=== PATIENT | male | born 1985 | race Two or more races ===

== ENCOUNTER 2023-12-13 11:22 | Emergency (ER) | payer OTHER ==
[~2023-12-13] VITALS: Ht 175.3 cm; Wt 100.0 kg
[2023-12-13 11:47] VITALS: O2SAT 99
[2023-12-13] MEDS: diphenhdrAMINE HCL 50 MG/1 ML VL IV ONE (12:31)
[2023-12-13] MEDS: SODIUM CHLORIDE 0.9% 1,000 ML IV ONE (12:52)
[2023-12-13] MEDS: LORazepam 2MG/ML-1ML VIAL IM ONE (13:51)
[2023-12-13] MEDS: HALOPERIDOL LACTATE 5 MG/ML INJ VIAL IM ONE (13:51)
[2023-12-13 16:00] VITALS: BP 124/75; PULSE 62; RESP 16; O2SAT 95
[2023-12-13 17:54] LABS: Amphetamine Screen, Urine Neg (NEGATIVE); Barbiturate Scree,Urine Neg (NEGATIVE); Benzodiazephine Screen, Urine Neg (NEGATIVE); Cocaine Screen, Urine Neg (NEGATIVE); Opiate Scree,Urine Neg (NEGATIVE)
[2023-12-13 17:55] LABS: Cannabinoid Screen, Urine Pos (NEGATIVE); Phencyclidine Screen, Urine Neg (NEGATIVE)
[2023-12-13] MEDS ORDERED: OLANZapine 5 MG TAB PO SCH (22:00)
[2023-12-14] MEDS ORDERED: OLANZapine 5 MG TAB PO SCH (10:00)
== END 2023-12-13 19:57 | disposition home or self-care (01) ==
LOC: ER 11:22 → EDBD 11:22 → ER 19:35
DX: F25.9 Schizoaffective disorder, unspecified (principal); F32.9 Major depressive disorder, single episode, unspecified; Z79.899 Other long term (current) drug therapy
CPT/HCPCS: 36415; 80307; 80320; 96361; 96372; 96374; 99285; J1200; J1630; J2060; J7030

== ENCOUNTER 2023-12-13 22:16 | Emergency (ER) | payer OTHER ==
[~2023-12-13] VITALS: Ht 175.3 cm; Wt 97.5 kg
[2023-12-13 22:54] VITALS: BP 104/69; PULSE 67; RESP 18; O2SAT 99
== END 2023-12-14 01:01 | disposition left against medical advice (07) ==
LOC: ER 22:16
DX: Z00.00 Encounter for general adult medical examination without abnormal findings (principal); Z53.21 Procedure and treatment not carried out due to patient leaving prior to being seen by health care provider